=== PATIENT | male | born 1995 | race American Indian/Alaskan Native ===

== ENCOUNTER 2017-08-19 03:39 | Emergency (ER) | payer SELFPAY ==
[2017-08-19 03:51] VITALS: BP 145/97; PULSE 104; RESP 14; TEMP 97.6; O2SAT 99
--- NOTE | 2017-08-19 04:15 | C.PDOC ---
Time Seen by Provider: 08/19/17 04:15 Chief Complaint (Nursing): Substance Abuse Past Medical History Vital Signs: Last Vital Signs Temp 97.6 F 08/19/17 03:48 Pulse 104 H 08/19/17 03:48 Resp 14 08/19/17 03:48 BP 145/97 H 08/19/17 03:48 Pulse Ox 99 08/19/17 03:48 - Social History Hx Alcohol Use: Yes Hx Substance Use: No - Immunization History Hx Tetanus Toxoid Vaccination: Yes Hx Influenza Vaccination: Yes Hx Pneumococcal Vaccination: No ED Course And Treatment O2 Sat by Pulse Oximetry: 99 Disposition - Disposition
--- NOTE | 2017-08-19 04:53 | C.PDOC ---
History Of Present Illness 21 year old male brought in by EMS after being found sleeping in his car at a parking lot, admits to drinking "a few beers". Patient has no complaints at this time and refuses to have a medical screening exam. Time Seen by Provider: 08/19/17 04:15 Chief Complaint (Nursing): Substance Abuse History Per: Patient History/Exam Limitations: no limitations Onset/Duration Of Symptoms: Hrs Current Symptoms Are (Timing): Still Present Suicide/Self Injury Attempted (Context): None Modifying Factor(s): Alcohol Associated Symptoms: denies: Depression, Suicidal Thoughts, Suicidal Plan Involuntary Hold By: None Recent travel outside of the [place]: No Past Medical History Reviewed: Historical Data, Nursing Documentation, Vital Signs Vital Signs: Last Vital Signs Temp 97.6 F 08/19/17 03:48 Pulse 104 H 08/19/17 03:48 Resp 14 08/19/17 03:48 BP 145/97 H 08/19/17 03:48 Pulse Ox 99 08/19/17 04:54 - Medical History PMH: No Chronic Diseases Surgical History: No Surg Hx Family History: States: Unknown Family Hx - Social History Hx Alcohol Use: Yes Hx Substance Use: No - Immunization History Hx Tetanus Toxoid Vaccination: Yes Hx Influenza Vaccination: Yes Hx Pneumococcal Vaccination: No Review Of Systems Review Of Systems: ROS cannot be obtained secondary to pt's inabilty to answer questions. (Uncooperative) Physical Exam - Physical Exam Additional Physical Exam Comments: Patient appears awake and alert, able to ambulate without difficulty. Refuses medical screening exam at this time. ED Course And Treatment O2 Sat by Pulse Oximetry: 99 Medical Decision Making Medical Decision Making: Patient is awake, alert, and oriented x3. able to ambulate without difficulty. Patient deemed clinically sober and able to make medical decisions for himself. Will discharge home. Disposition - Disposition Referrals: [facility] at [facility] [Outside] Disposition: LEFT W/O BEING SEEN - ER ONLY Disposition Time: 05:55 Condition: [facility] Forms: [facility] (Latvian) - Clinical Impression Clinical Impression: Alcohol abuse - Scribe Statement The provider has reviewed the documentation as recorded by the Scribe Josue Milner All medical record entries made by the Scribe were at my direction and personally dictated by me. I have reviewed the chart and agree that the record accurately reflects my personal performance of the history, physical exam, medical decision making, and the department course for this patient. I have also personally directed, reviewed, and agree with the discharge instructions and disposition.
== END 2017-08-19 04:21 | disposition left against medical advice (07) ==
LOC: C.ER 03:39
DX: F10.10 Alcohol abuse, uncomplicated (principal); Y90.9 Presence of alcohol in blood, level not specified

== ENCOUNTER 2018-04-02 00:39 | Emergency (ER) | payer OTHER ==
[2018-04-02 00:58] VITALS: TEMP 98.5
--- NOTE | 2018-04-02 01:03 | C.PDOC ---
History Of Present Illness 22-year-old male brought in by ambulance for substance abuse. Patient was found on the ground in [place] parking lot with pinpoint pupils. No evidence of trauma. Time Seen by Provider: 04/02/18 01:02 Chief Complaint (Nursing): Substance Abuse History Per: Patient History/Exam Limitations: intoxication Suicide/Self Injury Attempted (Context): None Involuntary Hold By: None Additional History Per: EMS Past Medical History Reviewed: Historical Data, Nursing Documentation, Vital Signs Vital Signs: Last Vital Signs Temp 98.5 F 04/02/18 00:53 Pulse 77 04/02/18 02:53 Resp 20 04/02/18 02:53 BP 123/70 04/02/18 02:53 Pulse Ox 98 04/02/18 02:53 Family History: States: Unknown Family Hx - Social History Hx Alcohol Use: Yes Hx Substance Use: No - Immunization History Hx Tetanus Toxoid Vaccination: Yes Hx Influenza Vaccination: Yes Hx Pneumococcal Vaccination: No Review Of Systems Review Of Systems: ROS cannot be obtained secondary to pt's inabilty to answer questions. Physical Exam - Physical Exam Appears: Non-toxic, No Acute Distress Skin: Warm, Dry Head: Normacephalic Eye(s): bilateral: PERRL, Other (Pinpoint pupils) Oral Mucosa: Moist Neck: Trachea Midline, Supple Chest: Symmetrical Cardiovascular: Rhythm Regular Respiratory: No Rales, No Rhonchi, No Wheezing Gastrointestinal/Abdominal: Soft, No Tenderness, No Distention Extremity: Bilateral: Atraumatic, Normal Color And Temperature Pulses: Left Dorsalis Pedis: Normal, Right Dorsalis Pedis: Normal Neurological/Psych: Other (Somnolent but arousable) ED Course And Treatment - Laboratory Results Result Diagrams: 04/02/18 01:23 04/02/18 01:23 O2 Sat by Pulse Oximetry: 95 (NC) Pulse Ox Interpretation: Normal Progress Note: Blood work and urine sent. pt was picked up by his sister.ambulating unassisted. clinically sober Reevaluation Time: 03:16 Reassessment Condition: Improved Disposition Counseled Patient/Family Regarding: Studies Performed, Diagnosis, Need For Followup - Disposition Referrals: [facility] [Outside] Disposition: HOME/ ROUTINE Disposition Time: 01:02 Condition: FAIR Instructions: Alcohol Abuse and Alcoholism (DC) Forms: [email or web address] (Lithuanian) - Clinical Impression Clinical Impression: Alcohol intoxication - Scribe Statement The provider has reviewed the documentation as recorded by the Scribe ([place]) Provider Attestation: All medical record entries made by the Scribe were at my direction and personally dictated by me. I have reviewed the chart and agree that the record accurately reflects my personal performance of the history, physical exam, medical decision making, and the department course for this patient. I have also personally directed, reviewed, and agree with the discharge instructions and disposition.
[2018-04-02 01:25] LABS: BASO # 0.1 K/uL (0.0-0.2); EOS # 0.2 K/uL (0.0-0.7); EOS % 2.3 % (0.0-4.0); HEMOGLOBIN 16.9 g/dL (12.0-18.0); LYMPH # 1.6 K/uL (1.0-4.3); LYMPH % 24.1 % (20.0-40.0); MEAN CELL VOLUME 88.1 fL (80.0-94.0); MEAN CORPUSCULAR HGB CONC 34.1 g/dL (33.0-37.0); MONO # 0.6 K/uL (0.0-0.8); MONO % 9.3 % (0.0-10.0); NEUT # 4.3 K/uL (1.8-7.0); NEUT % 63.3 % (50.0-75.0); NRBC % 0.1 % (0.0-2.0); RBC 5.62 Mil/uL (4.40-5.90); RED CELL DISTRIBUTION WIDTH 13.8 % (11.5-14.5); WHITE BLOOD COUNT 6.8 K/uL (4.8-10.8)
[2018-04-02 01:38] LABS: ALB/GLOB RATIO 1.3 (1.0-2.1); ALBUMIN 4.2 g/dL (3.5-5.0); ALT/SGPT 66 U/L (21-72); AST/SGOT 42 U/L (17-59); BLOOD UREA NITROGEN 12 mg/dL (9-20); CALCIUM 8.6 mg/dl (8.6-10.4); GFR AFRICAN-AMERICAN > 60; GFR NON-AFRICAN AMERICAN > 60
[2018-04-02 01:51] LABS: SQUAMOUS EPITHIAL < 1 /hpf (0-5); URINE BILIRUBIN NEGATIVE (NEGATIVE); URINE BLOOD NEGATIVE (NEGATIVE); URINE CLARITY Clear (Clear); URINE COLOR Yellow (YELLOW); URINE GLUCOSE (UA) NORMAL (Normal); URINE LEUKOCYTE ESTERASE NEG Leu/uL (Negative); URINE PROTEIN NEGATIVE (NEGATIVE); URINE UROBILINOGEN NORMAL mg/dL (0.2-1.0)
[2018-04-02 02:02] LABS: BARBITURATES, UR NEGATIVE (NEGATIVE); BENZODIAZEPINES, UR NEGATIVE (NEGATIVE); OPIATES, UR NEGATIVE (NEGATIVE); PHENCYCLIDINE, UR NEGATIVE (NEGATIVE)
[2018-04-02 02:53] VITALS: BP 123/70; PULSE 77; RESP 20
[2018-04-02 03:18] VITALS: O2SAT 95
== END 2018-04-02 03:18 | disposition home or self-care (01) ==
LOC: C.ER 00:39
DX: F10.129 Alcohol abuse with intoxication, unspecified (principal); Y90.8 Blood alcohol level of 240 mg/100 ml or more